=== PATIENT | female | born 1950 | race Caucasian/White ===

== ENCOUNTER 2023-02-12 09:00 | Day surgery (SDC) | payer MEDICARE, OTHER ==
[2023-02-12] MEDS ORDERED: LACTATED RINGERS 1,000 ML IV ONE ×3 (09:08→12:18)
--- NOTE | 2023-02-12 11:29 | ANESTHESIA ---
Pre-Anesthesia VS, & Labs - Diagnosis screening - Procedure colonoscopy Vital Signs: Temp Pulse Resp BP Pulse Ox O2 Flow Rate 36.2 C L 84 15 147/68 H 98 02/12/23 09:23 02/12/23 09:23 02/12/23 09:23 02/12/23 09:23 02/12/23 09:23 Height: 5 ft 4 in Weight (kg): 68.1 kg Body Mass Index: 25.7 BMI Classification: Overweight - NPO >8 hours - Is Patient ?: No Home Medications and Allergies Home Medications: Ambulatory Orders Alendronate [Fosamax] 70 mg PO Q7D 02/11/23 Atorvastatin Calcium 20 mg PO DAILY 02/11/23 Levothyroxine [Synthroid] 1 tab PO DAILY 02/11/23 amLODIPine [Norvasc] 10 mg PO DAILY 02/11/23 lisinopriL [Lisinopril] 1 tab PO DAILY 02/11/23 Alendronate [Fosamax] 70 mg PO Q7D 02/11/23 Atorvastatin Calcium 20 mg PO DAILY 02/11/23 Levothyroxine [Synthroid] 1 tab PO DAILY 02/11/23 amLODIPine [Norvasc] 10 mg PO DAILY 02/11/23 lisinopriL [Lisinopril] 1 tab PO DAILY 02/11/23 Allergies/Adverse Reactions: Allergies Allergy/AdvReac Type Severity Reaction Status Date / Time No Known Drug Allergies Allergy Verified 02/11/23 13:49 Anes History & Medical History - Anesthetic History Anesthesia Complications: reports: No previous complications Family history of Anesthesia Complications: Denies Family history of Malignant Hyperthermia: Denies - Medical History Cardiovascular: reports: Hypertension Pulmonary: reports: None Gastrointestinal: reports: Colon polyps Urinary: reports: None Musculoskeletal: reports: Other Endocrine/Autoimmune: reports: HyPOthyroidism Skin: reports: None - Surgical History Gynecologic: reports: Hysterectomy Orthopedic: reports: Other Exam General: Alert, Oriented x3, Cooperative Dental: WNL Mouth Openin Fingerbreadth Neck Mobility: Normal Mallampati classification: II Thyromental Distance: 4-6 cm Respiratory: Lungs clear Cardiovascular: Regular rate Plan Anesthesia Type: General, Total IV Consent for Procedure(s) Verified and Reviewed: Yes Code Status: Attempt Resuscitation ASA classification: 2-Mild systemic disease Is this case an emergency?: No
[2023-02-12 12:24] VITALS: BP 113/58
[2023-02-12 12:34] VITALS: O2SAT 97
--- NOTE | 2023-02-12 14:15 | ANESTHESIA POST OP EVALUATION ---
Anesthesia Post Eval - Post Anesthesia Eval Vitals: Last Vital Signs Temp 36.5 C 02/12/23 12:30 Pulse 77 02/12/23 12:30 Resp 15 02/12/23 12:30 BP 113/58 L 02/12/23 12:30 Pulse Ox 97 02/12/23 12:30 O2 Flow Rate CV Function Including HR & BP: Stable Pain Control: Satisfactory Nausea & Vomiting: Negative Mental Status: Baseline Respiratory Status: Airway Patent Hydration Status: Satisfactory Anesthesia Complications: None
== END 2023-02-12 09:01 | disposition home or self-care (01) ==
LOC: SDS 09:00
PROVIDERS: ATTEND Surgery
DX: Z12.11 Encounter for screening for malignant neoplasm of colon (principal); K57.30 Diverticulosis of large intestine without perforation or abscess without bleeding; Z86.010 Personal history of colon polyps
CPT/HCPCS: G0105; J7120